=== PATIENT | female | born 1980 | race Caucasian/White ===

== ENCOUNTER 2021-02-13 15:36 | Outpatient (CLI) | payer OTHER ==
--- NOTE | 2021-02-14 07:51 | Mammography Report ---
BILATERAL DIGITAL SCREENING MAMMOGRAM 3D/2D: 02/13/2021 CLINICAL: Baseline exam. Routine screening. No prior exams were available for comparison. The tissue of both breasts is heterogeneously dense. T his may lower the sensitivity of mammography. There is a possible 0.5 cm oval asymmetry in the left breast middle depth medial region seen on the c raniocaudal view only. No other significant masses, calcifications, or other findings are seen in either breast. IMPRESSION: INCOMPLETE: NEEDS ADDITIONAL IMAGING EVALUATION The possible 0.5 cm oval asymmetry in the left breast most likely is fibroglandular tissue and is ind eterminate. Additional views with possible ultrasound are recommended. This exam was interpreted at Station ID: [id number]. NOTE: For mammograms, a report in lay terms will be sent to the patient. Approximately 15% of breast malignancies will not be visualized mammographically. In the management of a palpable breast mass, a negative mammogram must not discourage biopsy of a clinically suspicious lesion. Electronically Signed By: Samir Skaggs M.D. aty/:02/13/2021 16:45:55 ACR BI-RADS Category 0: Incomplete 3340F PARENCHYMAL PATTERN: (D) - The breast(s) demonstrate(s) heterogeneously dense fibroglandular nimo salgado. BI-RADS CATEGORY: (0) - 0 Mammo and [place] [id number] Immediate follow-up LATERALITY: (L)
== END 2021-02-13 15:37 | disposition home or self-care (01) ==
LOC: DI.N 15:36
DX: Z12.31 Encounter for screening mammogram for malignant neoplasm of breast (principal); R92.8 Other abnormal and inconclusive findings on diagnostic imaging of breast

== ENCOUNTER 2021-04-16 08:16 | Outpatient (CLI) | payer OTHER ==
--- NOTE | 2021-04-17 13:44 | Mammography Report ---
UNILATERAL LEFT DIGITAL DIAGNOSTIC MAMMOGRAM 3D/2D: 04/16/2021 CLINICAL: Patient returns today to evaluate an asymmetry in the left breast. Comparison is made to exam dated: 02/13/2021 mammogram - [facility]. The tissue o f left breast is heterogeneously dense. This may lower the sensitivity of mammography. The possible 0.5 cm oval asymmetry in the left breast middle depth medial region seen on the cranioca udal view only is no longer seen and most likely is fibroglandular tissue. This is not seen in addit ional views. No other significant masses or calcifications are seen in the breast. IMPRESSION: BENIGN There is no mammographic evidence of malignancy. A 1 year screening mammogram is recommended. This exam was interpreted at Station ID: [id number]. NOTE: For mammograms, a report in lay terms will be sent to the patient. Approximately 15% of breast malignancies will not be visualized mammographically. In the management of a palpable breast mass, a negative mammogram must not discourage biopsy of a clinically suspicious lesion. Electronically Signed By: Benji Espinosa M.D., jr/benoit:04/16/2021 09:02:18 ACR BI-RADS Category 2: Benign Finding(s) 3342F PARENCHYMAL PATTERN: (D) - The breast(s) demonstrate(s) heterogeneously dense fibroglandular nimo salgado. BI-RADS CATEGORY: (2) - 2 RECOMMENDATION: (ANNUAL) - Recommend routine annual screening mammography. [id number] 1 year screening LATERALITY: (B)
== END 2021-04-16 08:17 | disposition home or self-care (01) ==
LOC: DI 08:16
PROVIDERS: ATTEND Nurse Practitioner
DX: R92.8 Other abnormal and inconclusive findings on diagnostic imaging of breast (principal)

== ENCOUNTER 2021-12-18 08:00 | Outpatient (CLI) | payer OTHER ==
--- NOTE | 2021-12-19 13:08 | XRAY Report ---
PROCEDURE: Shoulder 2 View LT INDICATIONS: LEFT SHOULDER PAIN TECHNIQUE: 2 views of the shoulder were acquired. COMPARISON: None. FINDINGS: Bones: No acute fractures or dislocations. There are degenerative changes of the left acromioclavicu lar joint. Coracoclavicular and acromioclavicular intervals are maintained. No suspicious bony lesio ns. Visualized ribs appear intact. Soft tissues: No suspicious soft tissue calcifications. IMPRESSION: Left shoulder without acute fracture or dislocation. Mild acromioclavicular osteoarthros is. Reviewed by: Samir Skaggs MD on 12/19/2021 1:07 PM PDT Approved by: Samir Skaggs MD on 12/19/2021 1:07 PM PDT Station ID: [id number]
== END 2021-12-18 23:59 | disposition home or self-care (01) ==
LOC: DI.N 08:00
PROVIDERS: ATTEND Nurse Practitioner
DX: M19.012 Primary osteoarthritis, left shoulder (principal)

== ENCOUNTER 2022-02-21 10:28 | Outpatient (CLI) | payer OTHER ==
--- NOTE | 2022-02-23 11:24 | MRI Report ---
PROCEDURE: THORACIC SPINE WO INDICATIONS: THORACIC BACK PAIN TECHNIQUE: Noncontrast sagittal T1 spine echo and T2 fast spin echo, sagittal STIR, axial T1 and T2 fast spin ec ho through the thoracic spine. COMPARISON: None. FINDINGS: Image quality: Excellent. Alignment and Curvature: There is normal bony alignment. Bone Marrow: Marrow is of normal overall signal. No acute vertebral body compression fractures. Spinal Cord: Visualized spinal cord is normal in size. There is approximate 1 mm T2 rounded focus wi thin the intramedullary portion of the cord from T6 through T10. Paraspinous Soft Tissues: No paravertebral masses. Miscellaneous: On axial images, central canal and foramina appear widely patent at all scanned level s. Trace disc bulges are present at T4-5, T10-11. IMPRESSION: Minimal scattered disc bulges. Focus of increased T2 signal within the cord as above. 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 Reviewed by: Alisha Wagner MD on 02/23/2022 11:23 AM PST Approved by: Alisha Wagner MD on 02/23/2022 11:23 AM PST Station ID: [id number]
== END 2022-02-21 10:29 | disposition home or self-care (01) ==
LOC: DI 10:28
PROVIDERS: ATTEND Nurse Practitioner
DX: M51.34 Other intervertebral disc degeneration, thoracic region (principal)

== ENCOUNTER 2022-04-29 15:55 | Outpatient (CLI) | payer OTHER ==
--- NOTE | 2022-04-29 17:35 | MRI Report ---
PROCEDURE: CERVICAL SPINE WO INDICATIONS: PARATHESIA, NECK PAIN TECHNIQUE: Noncontrast sagittal T1 spin echo and T2 fast spin echo, sagittal STIR, foraminal oblique sagittal T2 fast spin echo, and axial gradient echo or T2 fast spin echo through the cervical spine. COMPARISON: MR thoracic spine 02/23/2022 FINDINGS: Image quality: Excellent. Alignment and Curvature: There is straightening of normal cervical curvature with decrease reversal at C5-6. Bone Marrow: Marrow demonstrates normal overall signal. Spinal Cord: Visualized spinal cord has normal size and signal. No cerebellar tonsillar herniation. Paraspinous Soft Tissues: No paravertebral masses. Prevertebral soft tissues are normal in thicknes s. Discs: Moderate desiccation is present at C5-6 and C6-7, C2-C3: No disc bulge, spinal stenosis or foraminal narrowing. C3-C4: Minimal disc bulge with effacement of the anterior thecal sac. No foraminal narrowing. C4-C5: Mild disc bulge with effacement of the anterior thecal sac and minimal spinal stenosis. Minim al bilateral foraminal narrowing. C5-C6: Mild disc bulge with mild spinal stenosis. Moderate left and minimal right foraminal narrowin g with uncovertebral hypertrophy. C6-C7: Mild disc bulge with posterior central protrusion with mild spinal stenosis. Moderate left an d minimal right foraminal narrowing with uncovertebral hypertrophy. C7-T1: No disc bulge, spinal stenosis or foraminal narrowing. IMPRESSION: Multilevel degenerative changes most severe at C5-6 and C6-7 with moderate foraminal narrowing second alec to uncovertebral arthropathy. Reviewed by: Alisha Wagner MD on 04/29/2022 5:34 PM PST Approved by: Alisha Wagner MD on 04/29/2022 5:34 PM PST Station ID: [id number]
== END 2022-04-29 15:56 | disposition home or self-care (01) ==
LOC: DI 15:55
PROVIDERS: ATTEND Nurse Practitioner
DX: M47.812 Spondylosis without myelopathy or radiculopathy, cervical region (principal); M48.02 Spinal stenosis, cervical region

== ENCOUNTER 2022-05-15 08:08 | Outpatient (CLI) | payer OTHER ==
[~2022-05-15 08:08] MED LIST: GADOBUTROL 7.5 MMOL/7.5 ML VIAL ONE
[2022-05-15] MEDS ORDERED: GADOBUTROL 7.5 MMOL/7.5 ML VIAL IVP ONE (09:55)
--- NOTE | 2022-05-15 14:24 | MRI Report ---
PROCEDURE: MRI brain with and without contrast INDICATIONS: TREMOR, PARESTHESIAS CONTRAST: GADAVIST 5.2ML TECHNIQUE: Noncontrast axial T1 spin echo, axial T2 fast spin echo, sagittal and axial FLAIR, coronal T2 fast sp in echo, axial gradient echo, axial diffusion and ADC through the brain. After the administration of contrast, axial and coronal T1 spin echo with fat saturation through the brain. COMPARISON: None. FINDINGS: Image quality: Excellent. CSF spaces: Basal cisterns are patent. No extra-axial fluid collections. Ventricles are normal in size and shape. Brain: No midline shift. No intracranial bleeds or masses. No abnormal intracranial enhancement. There is cerebral volume loss for age. Diffusion-weighted images normal. Normal cerebral and cerebell ar volume. Normal intravascular flow voids are present. Skull and face: Calvarial marrow is normal in signal. Orbits appear normal. Incidental 1 cm right p arietal sebaceous cyst in noted in the scalp Sinuses: Sinuses and mastoids appear clear. IMPRESSION: Normal MRI of the brain. Reviewed by: Sourav Roes MD on 05/15/2022 1:23 PM [facility] Approved by: Sourav Rose MD on 05/15/2022 1:23 PM [facility] Station ID: [id number]
== END 2022-05-15 08:09 | disposition home or self-care (01) ==
LOC: DI 08:08
PROVIDERS: ATTEND Psychiatry & Neurology Neurology
DX: R25.1 Tremor, unspecified (principal); R20.2 Paresthesia of skin
CPT/HCPCS: 70553; A9585

== ENCOUNTER 2023-12-13 17:01 | Outpatient (CLI) | payer OTHER ==
[2023-12-13 17:31] LABS: HCT - HEMATOCRIT 38.2 % (37.0-47.0); HGB - HEMOGLOBIN 12.6 g/dL (12.0-16.0); MEAN CORPUSCULAR HEMOGLOBIN 32.8 pg (27.0-31.0); MEAN CORPUSCULAR VOLUME 99.5 fL (81.0-99.0); MEAN PLATELET VOLUME 8.9 fL (7.9-10.8); RED BLOOD COUNT 3.84 10^6/uL (4.20-5.40); RED CELL DISTRIBUTION WIDTH 12.6 % (12.0-15.0); WHITE BLOOD COUNT 4.2 x10^3/uL (4.8-10.8)
[2023-12-13 18:01] LABS: ALBUMIN 4.9 g/dL (3.2-5.5); ALBUMIN/GLOBULIN RATIO 1.6 (1.0-2.2); ALKALINE PHOSPHATASE 34 IU/L (42-121); ALT ALANINE AMINOTRANSFERASE 19 IU/L (10-60); AST ASPARTATE AMINOTRANSFERASE 24 IU/L (10-42); BILIRUBIN,TOTAL 0.3 mg/dL (0.2-1.0); BUN - BLOOD UREA NITROGEN 17 mg/dL (6-20); CALCIUM 10.2 mg/dL (8.5-10.3); CARBON DIOXIDE - CO2 29 mmol/L (21-32); CHLORIDE 101 mmol/L (101-111); CHOL/HDL RATIO 2.5 (<4.4); CHOLESTEROL 177 mg/dL; CREATININE 0.7 mg/dL (0.6-1.3); CRP - C-REACTIVE PROTEIN < 0.5 mg/dL (<0.5); GFR - MDRD 91 (>89); GLUCOSE 83 mg/dL (74-104); HDL CHOLESTEROL 72 mg/dL; LDL CHOLESTEROL,CALCULATED 55 mg/dL; LDL/HDL RATIO 0.8 (<4.4); POTASSIUM 3.9 mmol/L (3.5-4.5); SODIUM 137 mmol/L (135-145); TOTAL PROTEIN 7.9 g/dL (6.4-8.9); TRIGLYCERIDES 250 mg/dL; URIC ACID 3.7 mg/dL (2.3-6.6); VLDL CHOLESTEROL 50 mg/dL
[2023-12-13 18:08] LABS: THYROID STIMULATING HORMONE 1.43 uIU/mL (0.34-5.60)
[2023-12-13 19:06] LABS: RHEUMATOID FACTOR NEGATIVE (Negative)
--- NOTE | 2023-12-14 15:06 | XRAY Report ---
PROCEDURE: Hand 3+V BL INDICATIONS: HAND PAIN,BILAT TECHNIQUE: 3 views of the hand(s) acquired. COMPARISON: None. FINDINGS: Bones: No fractures or dislocations. No suspicious bony lesions. No appreciable gross arthritic c hange. Soft tissues: No suspicious soft tissue calcifications or masses. IMPRESSION: No gross arthritic change. Reviewed by: Alisha Wagner MD on 12/14/2023 3:05 PM PDT Approved by: Alisha Wagner MD on 12/14/2023 3:05 PM PDT Station ID: [id number]
[2023-12-14 19:07] LABS: ANTI-DNA (DS) AB QN <1 IU/mL (0-9)
[2023-12-15 10:10] LABS: CYCLIC CITRULLINATED PEP IGG/A 0 units (0-19)
[2023-12-15 19:07] LABS: ANTINUCLEAR ANTIBODIES IFA Negative (.)
== END 2023-12-13 17:02 | disposition home or self-care (01) ==
LOC: DI 17:01
PROVIDERS: ATTEND Nurse Practitioner
DX: M79.642 Pain in left hand (principal); M79.641 Pain in right hand; Z13.220 Encounter for screening for lipoid disorders; R25.1 Tremor, unspecified; R53.83 Other fatigue
CPT/HCPCS: 36415; 80053; 80061; 83721; 84443; 84550; 85027; 85651; 86038; 86140; 86200; 86225; 86430